=== PATIENT | female | born 1975 | race Caucasian/White ===

== ENCOUNTER 2019-04-14 18:03 | Emergency (ER) | payer OTHER, SELFPAY ==
[2019-04-14 18:04] VITALS: BP 141/82; PULSE 79; RESP 16; TEMP 36.8; O2SAT 98; BMI 31.8
--- NOTE | 2019-04-14 18:30 | RAD_ITS ---
STUDY: X-RAY - RIGHT SHOULDER REASON FOR EXAM: Female, 44 years old. Shoulder pain TECHNIQUE: 4 view(s) of the shoulder. COMPARISON: None. FINDINGS: Normal glenohumeral articulation. There is widening of the right AC joint. Normal acromion. Normal humeral head and visualized proximal humerus. The soft tissue structures are unremarkable. Normal visualized pulmonary apex. RAD/Shoulder min 2 Views IMPRESSION: Right AC separation, there is widening of the AC joint No acute fractures Electronically Signed: Gil Kessler, at 19:39 EDT Tel , Service support ,
--- NOTE | 2019-04-14 19:06 | ED.VISSUMM ---
- ER Visit Summary Date of Service: 04/14/19 Chief Complaint: [Right shoulder pain] History of Present Illness: The patient is a 44 F [presents the emergency department complaint of right shoulder pain that started 5 days ago. 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 Patient is right-hand dominant. Patient complains of pain intermittently that shoots down into her middle finger. Patient does have a history of pinched nerve in her neck although she is not having any real significant neck pain. She denies any weakness in the extremity.] Physical Examination: [HEENT-PERRLA, EOMI. Cranial nerves II through XII grossly intact. TMs clear. Mucous membranes moist. No adenopathy. Cardiovascular-regular rate and rhythm without murmur or ectopy Lungs-clear to auscultation, chest wall stable without crepitus or subcu emphysema Abdomen-normoactive bowel sounds, soft, nontender, no rebound or rigidity, no peritoneal signs. Extremities-intact ?4, normal range of motion, normal pulses, atraumatic. Right shoulder-patient has diffuse tenderness about the glenohumeral joint. There is no erythema or warmth noted. Patient has pain with abduction of the shoulder that reproduces her pain. She is neurovascular intact distally. Normal range of motion of all digits.] Test Results: [X-rays of the right shoulder ordered by protocol by nursing staff showed nothing acute.] Emergency Department Course and Treatment: [Patient will be given a sling] Treatment Plan: [Patient will be given a prescription for Naprosyn and Ranger for severe pain. Patient to follow-up with her orthopedic surgeon Dr. Rizo within the next 3 to 5 days. I suspect patient may have a tendinitis or bursitis of the shoulder.] Disposition: [Discharged home in stable condition ] Impression: [Atraumatic right shoulder pain] This note was generated with [employer] dictation software. It may contain incorrect words, spelling, and punctuation that were not noted in review of the chart prior to signing ED Disposition - Plan for ED Patient: Referrals: Care Physician,No Primary [Primary Care Provider] -
--- NOTE | 2019-04-14 19:08 | ED.DEP ---
ED Disposition - Plan for ED Patient: Instructions: ED Shoulder Pain [facility] Prescriptions: Hydrocodone Bitart/Apap 5-325 [Garland 5MG-325MG] 1 tab PO Q4H PRN PRN 2 Days #10 tab PRN Reason: Pain Naproxen [Naprosyn] 500 mg PO BID PRN #20 tab Referrals: Care Physician,No Primary [Primary Care Provider] - Richard Rizo MD [STAFF PHYSICIAN] - 3-5 Days
--- NOTE | 2019-04-14 19:11 | DCINST.ED_ITS ---
ED Disposition - Plan for ED Patient: Instructions: ED Shoulder Pain [facility] Prescriptions: Hydrocodone Bitart/Apap 5-325 [Gerald 5MG-325MG] 1 tab PO Q4H PRN PRN 2 Days #10 tab PRN Reason: Pain Naproxen [Naprosyn] 500 mg PO BID PRN #20 tab Referrals: Care Physician,No Primary [Primary Care Provider] - Richard Rizo MD [STAFF PHYSICIAN] - 3-5 Days
== END 2019-04-14 19:16 | disposition home or self-care (01) ==
PROVIDERS: Emergency Provider Emergency Medicine
DX: M25.511 Pain in right shoulder (principal)
CPT/HCPCS: 73030; 99282